=== PATIENT | female | born 1995 | race Caucasian/White ===

== ENCOUNTER → 2024-01-13 12:30 | Outpatient (REF) | payer OTHER, MEDICAID, SELFPAY | LOC: RAD 12:30 | PROVIDERS: ATTENDING PHYSICIAN Nurse Practitioner Family | DX: J45.20 Mild intermittent asthma, uncomplicated (principal) | CPT/HCPCS: 71046 ==

== ENCOUNTER 2024-07-20 18:33 | Emergency (ER) | payer SELFPAY ==
[2024-07-20 18:36] VITALS: BP 127/91
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
[2024-07-20] MEDS: MOTRIN 600 MG PO (20:25)
[2024-07-20 21:04] VITALS: BP 121/83
== END 2024-07-20 21:09 | disposition home or self-care (01) ==
LOC: EMR 18:33
PROVIDERS: EMERGENCY PHYSICIAN Emergency Medicine; FAMILY PHYSICIAN Family Medicine
DX: M79.18 Myalgia, other site (principal); F84.0 Autistic disorder
CPT/HCPCS: 99283; 71111

== ENCOUNTER → 2025-01-01 09:55 | Outpatient (REF) | payer OTHER, SELFPAY | LOC: HWRAD 09:55 | PROVIDERS: ATTENDING PHYSICIAN Podiatrist Foot & Ankle Surgery; FAMILY PHYSICIAN Family Medicine | DX: M96.0 Pseudarthrosis after fusion or arthrodesis (principal) | CPT/HCPCS: 73700 ==